=== PATIENT | male | born 1965 | race Two or more races ===

== ENCOUNTER 2016-08-20 12:57 | Inpatient (IN) | payer OTHER ==
--- NOTE | 2016-08-20 14:42 | PDOC ---
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 According to the sister, the patient (who lives with his elderly parents), has been drinking excessively and behaving aggressively towards his mother for the past several weeks. His sister states that he has been "overdosing" on his insulin, has had insomnia, and has been exhibiting bizarre behavior. He has made suicidal statements lately (although patient denies this currently). The patient acknowledges that he has been drinking large amounts of alcohol (beer and liquor), but is unable to quantify. He denies headache, dizziness, chest pain, shortness of breath, or any other physical symptoms. He agrees that he needs to go to inpatient detox/rehab. V/s on arrival are notable for P 97. PCP is Dr. Perez. REVIEW OF SYSTEMS: GENERAL/CONSTITUTIONAL: No fever or chills. No weakness. No weight change. HEAD, EYES, EARS, NOSE AND THROAT: No change in vision. No ear pain or discharge. No sore throat. CARDIOVASCULAR: No chest pain or palpitations. RESPIRATORY: No cough, wheezing, or shortness of breath. GASTROINTESTINAL: No nausea, vomiting, diarrhea or constipation. GENITOURINARY: No dysuria, frequency, or change in urination. MUSCULOSKELETAL: No joint or muscle swelling or pain. No neck or back pain. SKIN: No rash or easy bruising. NEUROLOGIC: No headache, vertigo, loss of consciousness, or loss of sensation. PSYCHIATRIC: See HPI. ENDOCRINE: No increased thirst. No abnormal weight change. HEMATOLOGIC/LYMPHATIC: No anemia, easy bleeding, or history of blood clots. ALLERGIC/IMMUNOLOGIC: No hives or skin allergy. No latex allergy. PHYSICAL EXAM: GENERAL: The patient is awake, alert, and fully oriented, in no acute distress. ENT: Pupils equal, round and reactive to light, extraocular movements intact, sclera anicteric, conjunctiva clear. Neck supple. LUNGS: Clear to auscultation bilaterally. Normal excursion. No respiratory distress or use of accessory muscles. CV: RRR, S1/S2, no MRG. Cap refill < 2 sec. ABDOMEN: Soft, non-distended, non-tender. EXTREMITIES: Normal range of motion, no edema. NEUROLOGICAL: Dysarthric (baseline), mild left-sided weakness (baseline). MMSE: Orientation - 6 Registration - 2 Attention and calculation - 0 Recall - 2 Language and Praxis - 5 = 15 PSYCH: Depressed affect. SKIN: Warm, dry, normal turgor, no rashes or lesions noted. Past History - Past Medical History Allergies/Adverse Reactions: Allergies Allergy/AdvReac Type Severity Reaction Status Date / Time No Known Allergies Allergy Verified 08/20/16 13:00 Home Medications: Ambulatory Orders Aspirin/Dipyridamole [Aspirin-Dipyridam ER 25-200 mg] 1 each PO DAILY 08/20/16 Atorvastatin Ca [Lipitor] 40 mg PO HS 08/20/16 Insulin Aspart [Novolog] 6 unit SQ BID 08/20/16 Insulin Degludec [Tresiba Flextouch U-100] 9 unit SQ HS 08/20/16 Metoprolol Succinate [Toprol Xl] 100 mg PO DAILY 08/20/16 Omeprazole 20 mg PO DAILY 08/20/16 Valsartan 320 mg PO DAILY 08/20/16 CVA: Yes (X2 LT SIDE WEAKNESS) HTN: Yes Hypercholesterolemia: Yes - Psycho/Social/Smoking Cessation Hx Anxiety: No Suicidal Ideation: No Smoking History: Never smoked Have you smoked in the past 12 months: No Hx Alcohol Use: Yes (ALCOHOL) Drug/Substance Use Hx: No Substance Use Type: Alcohol *Physical Exam - Vital Signs Last Vital Signs Temp Pulse Resp BP Pulse Ox 98.0 F 97 H 18 134/103 100 08/20/16 13:01 08/20/16 13:01 08/20/16 13:01 08/20/16 13:01 08/20/16 13:01 ED Treatment Course - LABORATORY CBC & Chemistry Diagram: 08/20/16 16:00 08/20/16 16:00 - RADIOLOGY Radiology Studies Ordered: Category Date Time Status HEAD CT WITHOUT CONTRAST [CT] Stat CT Scan 08/20/16 14:38 Ordered Medical Decision Making - Medical Decision Making 08/20/16 15:03 A/P: 51 year old male with history of multiple CVAs presenting with bizarre/ aggressive behavior, increased EtOH intake. Requesting alcohol detox. 1. Basic labs, TSH, ammonia to rule out toxic metabolic encephalopathy 2. Head CT 3. Serum EtOH, urine drug screen 4. Re-evaluate 08/20/16 16:24 CTH reviewed: moderate chronic microvascular ischemic changes with bilateral periventricular and left centrum semiovale likely lacunar infarcts. Correlation with MRI is recommended to rule out demyelinating plaques considering the patient's age. I am concerned for dymelinating process vs dementia (?multi-infarct) rather than substance abuse alone as cause of the patient's abnormal behavior. Will request admission for further evaluation. 08/20/16 17:14 Blood glucose 45. Juice and D5NS given. *DC/Admit/Observation/Transfer Diagnosis at time of Disposition: Change in behavior, Altered mental status, Hypoglycemia, Alcohol abuse - Discharge Dispostion Admit: Yes - Referrals Referrals: Porsche Perez [Primary Care Provider] -
[2016-08-20 16:39] LABS: URINE APPEARANCE CLEAR; URINE BILIRUBIN NEGATIVE (NEGATIVE); URINE BLOOD NEGATIVE (NEGATIVE); URINE COLOR LTYELLOW; URINE GLUCOSE (UA) 1+ (NEGATIVE); URINE KETONE NEGATIVE (NEGATIVE); URINE LEUK ESTERASE NEGATIVE (NEGATIVE); URINE NITRITE NEGATIVE (NEGATIVE); URINE PROTEIN NEGATIVE (NEGATIVE); URINE UROBILINOGEN NEGATIVE E.U./dl (0.2-1.0)
[2016-08-20 16:43] LABS: ALK PHOS 115 U/L (45-117); BILIRUBIN,TOTAL 0.5 mg/dL (0.2-1.0); CALCIUM 9.1 mg/dL (8.5-10.1); CO2 27 mmol/L (21-32); COCKROFT - GAULT 81.21; CREATININE 1.2 mg/dL (0.7-1.3); SGPT/ALT 39 U/L (12-78); TOT PROT 7.5 g/dl (6.4-8.2)
[2016-08-20 16:56] LABS: BASOPHIL 0.3 % (0-2.0); EOSINOPHIL 0.6 % (0-4.5); MCH 31.2 pg (25.7-33.7); MCHC 32.7 g/dl (32.0-35.9); MEAN CELL VOLUME 95.2 fl (80-96); MEAN PLT VOLUME 9.7 fl (7.5-11.1); PLATELET COUNT 226 K/MM3 (134-434); RDW 13.6 % (11.9-15.9); WHITE BLOOD COUNT 10.5 K/mm3 (4.0-10.0)
[2016-08-20 17:06] LABS: ANION GAP 12 (8-16)
[2016-08-20 17:12] LABS: SGOT/AST 39 U/L (15-37)
[2016-08-20 17:13] LABS: GLUCOSE,RANDOM 45 mg/dL (74-106)
[2016-08-20 17:46] LABS: THYROID STIMULATING HORMONE 0.79 uIU/ml (0.358-3.74)
[2016-08-20] MEDS: DEXTROSE 5%-NORMAL SALINE 1,000 ML IV SCH (18:00)
[2016-08-20 18:03] LABS: URINE MARIJUANA THC NEGATIVE ng/ml (CUTOFF=50)
[2016-08-20 20:42] LABS: BASOPHIL 0.3 % (0-2.0); EOSINOPHIL 2.3 % (0-4.5); MCH 31.4 pg (25.7-33.7); MCHC 32.9 g/dl (32.0-35.9); MEAN CELL VOLUME 95.3 fl (80-96); MEAN PLT VOLUME 9.8 fl (7.5-11.1); NEUTROPHILS 77.8 % (42.8-82.8); PLATELET COUNT 207 K/MM3 (134-434); WHITE BLOOD COUNT 8.9 K/mm3 (4.0-10.0)
--- NOTE | 2016-08-20 21:27 | HP ---
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 According to the sister, the patient (who lives with his elderly parents), has been drinking excessively and behaving aggressively towards his mother for the past several weeks. His sister states that he has been "overdosing" on his insulin, has had insomnia, and has been exhibiting bizarre behavior. He has made suicidal statements lately (although patient denies this currently). The patient acknowledges that he has been drinking large amounts of alcohol (beer and liquor ), but is unable to quantify. He denies headache, dizziness, chest pain, shortness of breath, or any other physical symptoms. He agrees that he needs to go to inpatient detox/rehab. PCP is Dr. Perez. history taken from er records...poor historian - Past Medical History Cardiovascular: Yes: HTN, Hyperlipdemia Endocrine: Yes: Diabetes Mellitus - Smoking History Smoking history: Never smoked Have you smoked in the past 12 months: No - Alcohol/Substance Use Hx Alcohol Use: Yes (ALCOHOL) Home Medications - Allergies Allergies/Adverse Reactions: Allergies Allergy/AdvReac Type Severity Reaction Status Date / Time No Known Allergies Allergy Verified 08/20/16 13:00 - Home Medications Home Medications: Ambulatory Orders Aspirin/Dipyridamole [Aspirin-Dipyridam ER 25-200 mg] 1 each PO DAILY 08/20/16 Atorvastatin Ca [Lipitor] 40 mg PO HS 08/20/16 Insulin Aspart [Novolog] 6 unit SQ BID 08/20/16 Insulin Degludec [Tresiba Flextouch U-100] 9 unit SQ HS 08/20/16 Metoprolol Succinate [Toprol Xl] 100 mg PO DAILY 08/20/16 Omeprazole 20 mg PO DAILY 08/20/16 Valsartan 320 mg PO DAILY 08/20/16 Physical Examination Vital Signs: Vital Signs Temperature 98.0 F 08/20/16 13:01 Pulse Rate 80 08/20/16 21:15 Respiratory Rate 18 08/20/16 21:15 Blood Pressure 158/100 08/20/16 21:15 O2 Sat by Pulse Oximetry (%) 96 08/20/16 21:15 Constitutional: Yes: No Distress HENT: Yes: Atraumatic Neck: Yes: Supple Cardiovascular: Yes: Regular Rate and Rhythm Respiratory: Yes: CTA Bilaterally Gastrointestinal: Yes: Normal Bowel Sounds Extremities: Yes: WNL Neurological: Yes: Alert, Oriented Labs: CBC, BMP 08/20/16 20:36 Imaging - Results X-ray: Report Reviewed Cat Scan: Report Reviewed Problem List - Problems (1) Alcohol abuse Assessment/Plan: will monitor librium protocol detox consult also get neuro involved Code(s): F10.10 - ALCOHOL ABUSE, UNCOMPLICATED (2) Altered mental status Assessment/Plan: bettr now could be due to etoh and porsche min deficiencies Code(s): R41.82 - ALTERED MENTAL STATUS, UNSPECIFIED (3) Diabetes Code(s): E11.9 - TYPE 2 DIABETES MELLITUS WITHOUT COMPLICATIONS Assessment/Plan Laboratory Tests 08/20/16 08/20/16 08/20/16 14:39 16:00 16:00 WBC 10.5 H RBC 4.24 Hgb 13.2 Hct 40.4 MCV 95.2 MCHC 32.7 RDW 13.6 Plt Count 226 MPV 9.7 Neutrophils % 81.0 Lymphocytes % 9.1 Monocytes % 9.0 Eosinophils % 0.6 Basophils % 0.3 Sodium 143 Potassium 4.9 Chloride 104 Carbon Dioxide 27 Anion Gap 12 BUN 12 Creatinine 1.2 Creat Clearance w eGFR > 60 POC Glucometer Random Glucose 45 L* Calcium 9.1 Total Bilirubin 0.5 AST 39 H ALT 39 Alkaline Phosphatase 115 Total Protein 7.5 Albumin 4.0 TSH 0.79 Urine Color Urine Appearance Urine pH Urine Protein Urine Glucose (UA) Urine Ketones Urine Blood Urine Nitrite Urine Bilirubin Urine Urobilinogen Ur Leukocyte Esterase Opiates Screen Negative Methadone Screen Negative Barbiturate Screen Negative Phencyclidine Screen Negative Ur Amphetamines Screen Negative MDMA (Ecstasy) Screen Negative Benzodiazepines Screen Negative Cocaine Screen Negative U Marijuana (THC) Screen Negative 08/20/16 08/20/16 08/20/16 17:25 17:33 20:36 WBC 8.9 RBC 4.06 Hgb 12.7 Hct 38.6 MCV 95.3 MCHC 32.9 RDW 14.0 Plt Count 207 MPV 9.8 Neutrophils % 77.8 Lymphocytes % 9.8 Monocytes % 9.8 Eosinophils % 2.3 D Basophils % 0.3 Sodium Potassium Chloride Carbon Dioxide Anion Gap BUN Creatinine Creat Clearance w eGFR POC Glucometer [id number] Random Glucose Calcium Total Bilirubin AST ALT Alkaline Phosphatase Total Protein Albumin TSH Urine Color Ltyellow Urine Appearance Clear Urine pH 7.0 Urine Protein Negative Urine Glucose (UA) 1+ H Urine Ketones Negative Urine Blood Negative Urine Nitrite Negative Urine Bilirubin Negative Urine Urobilinogen Negative Ur Leukocyte Esterase Negative Opiates Screen Methadone Screen Barbiturate Screen Phencyclidine Screen Ur Amphetamines Screen MDMA (Ecstasy) Screen Benzodiazepines Screen Cocaine Screen U Marijuana (THC) Screen Active Medications Generic Name Dose Route Start Last Admin Trade Name Freq PRN Reason Stop Dose Admin Dextrose/Sodium Chloride 1,000 mls @ 75 mls/hr 08/20/16 17:30 08/20/16 18:00 D5-Ns - IV 75 mls/hr ASDIR FLY Administration Active Medications Generic Name Dose Route Start Last Admin Trade Name Freq PRN Reason Stop Dose Admin Atorvastatin Calcium 40 mg 08/20/16 22:00 08/21/16 00:45 Lipitor - PO Not Given HS FLY Chlordiazepoxide HCl 25 mg 08/21/16 16:24 Librium - PO Q4H PRN WITHDRAWAL(CONT SUBST) Dipyridamole/Aspirin 1 combo 08/21/16 10:00 08/21/16 10:02 Aggrenox - PO 1 combo DAILY FLY Administration Insulin Aspart 1 vial 08/20/16 22:00 08/21/16 16:35 Novolog Vial Sliding Scale - SQ 2 unit ACHS FLY Administration Protocol Metoprolol Succinate 100 mg 08/21/16 10:00 08/21/16 10:03 Toprol Xl - PO 100 mg DAILY FLY Administration Pantoprazole Sodium 20 mg 08/21/16 10:00 08/21/16 10:03 Protonix - PO 20 mg DAILY FLY Administration Thiamine HCl 250 mg 08/21/16 09:45 08/21/16 16:28 Vitamin B1 Injection - IVPB 08/24/16 09:44 250 mg TID FLY Administration Valsartan 320 mg 08/21/16 10:00 08/21/16 10:03 Diovan - PO 320 mg DAILY FLY Administration
[2016-08-20] MEDS: INSULIN SLIDING SCALE (NOVOLOG) 1 VIAL SQ SCH (22:14)
[2016-08-21] MEDS: ATORVASTATIN CA 40 MG TABLET (FP) PO SCH ×2 (00:45→21:34)
[2016-08-21] MEDS: DEXTROSE 5%-NORMAL SALINE 1,000 ML IV SCH ×2 (01:00→16:31)
[2016-08-21 02:06] VITALS: BMI 23.8
[2016-08-21] MEDS: INSULIN SLIDING SCALE (NOVOLOG) 1 VIAL SQ SCH ×5 (02:10→21:37)
[2016-08-21] MEDS: ASPIRIN/DIPYRIDAMOLE 25 MG/200 MG CAPSULE (FP) PO SCH (10:02)
[2016-08-21] MEDS: METOPROLOL SUCCINATE 100 MG TAB.SR.24H (FP) PO SCH (10:03)
[2016-08-21] MEDS: VALSARTAN 160 MG TABLET (UD) PO SCH (10:03)
[2016-08-21] MEDS: chlordiazePOXIDE HCL 25 MG CAPSULE PO SCH (10:03)
[2016-08-21] MEDS: PANTOPRAZOLE 20 MG TABLET (FP) PO SCH (10:03)
--- NOTE | 2016-08-21 11:42 | EKG ---
Test Reason : Blood Pressure : / mmHG Vent. Rate : 082 BPM Atrial Rate : 082 BPM P-R Int : 162 ms QRS Dur : 106 ms QT Int : 390 ms P-R-T Axes : 047 067 063 degrees QTc Int : 455 ms NORMAL SINUS RHYTHM NORMAL ECG NO PREVIOUS ECGS AVAILABLE Confirmed by MARGE VELASCO, SAEID ([id number]) on 08/21/2016 11:41:53 AM Referred By: Confirmed By:SAEID BIRD MD
[2016-08-21] MEDS: THIAMINE HCL 200 MG/2 ML VIAL IVPB SCH ×3 (11:45→21:39)
[2016-08-21] MEDS ORDERED: INSULIN (NOVOLOG) ASPART 100 UNITS/ML 10ML VIAL ONE (11:51)
[2016-08-21] MEDS ORDERED: chlordiazePOXIDE HCL 25 MG CAPSULE PO SCH (16:00)
--- NOTE | 2016-08-21 16:23 | CONSULT ---
Consult Detox [facility] Reason for Current Admission/Consult: R/O alcohol related AMS Referred by:: Berenice Isaac NP - History History of Present Illness: 51 y/o man brought by family because of AMS and excessive drinking according to sister.Pt. denies excessive drinking but does consume beer 48 oz 3x/week. - Alcohol/Substance Use Hx Alcohol Use: Yes (ALCOHOL) - Current Drug/Alcohol Use Alcohol Route: Oral Frequency: 3-6 times per week Amount used: Beer 48oz 3x/week Age of first use: 20 Date of Last Use: 08/19/16 - Past Medical History Cardio/Vascular: Yes: HTN, Hyperlipdemia Endocrine: Yes: Diabetes Mellitus CIWA Score - CIWA Score Nausea/Vomitin-No Nausea/No Vomiting Muscle Tremors: None Anxiety: 2 Agitation: 1-Slight > Activity Paroxysmal Sweats: 1-Minimal Palms Moist Orientation: 0-Oriented Tacttile Disturbances: 1-Very Mild Itch/Numbness Auditory Disturbances: 0-None Visual Disturbances: 0-None Headache: 0-None Present CIWA-Ar Total Score: 5 Assessment Plan - Diagnosis (1) Alcohol dependence Status: Acute Qualifiers: Substance use status: uncomplicated Qualified Code(s): F10.20 - Alcohol dependence, uncomplicated - Plan Plan: No overt withdrawal sx. at this time, no detox needed,we'll order prn librium.
--- NOTE | 2016-08-21 18:47 | CONSULT ---
Consult - text type - Consultation Consultation Note: NEUROLOGY CONSULTATION is greatly appreciated: This 51 yo RH single man lives with his elderly parents. Sister at bedside. Long h/o HTN, DM, Chol and ETOH. Maintained on Insulins, valsartan, metoprolol, atorvastatin, pantoprazole. Said to have had a stroke in 2012 but sister notes patient has been worsening progressively including gait, cognition and behavior. Now intermittently violent. Now admitted with confusion. Blood ETOH level < 5.o. Ammonia= [address] of head: Diffuse, severe, periventricular and subcortical microvascular changes. GWENDOLYN: No head trauma. No bruits. Cor: Reg. NEURO: Mild OMS. Severe dysarthric speech CN: Full concepcion, Full EOM's without nystagmus. Decreased tongue JACKIE' s and gag Motor: Spastic Left hemiparesis. Decreased JACKIE's L>R. + Cogwheel rigidity. Brisk reflexes. B/L Babinski's Coord: Mod L>R FTN dystaxia Sensory: Normal Gait: Stiff, unsteady, B/L circumduction. IMP: B/L cerebral dysfunction. L>R. Extrapyramidal features of Parkinsonism Asymmetry is c/w multi-infarct state but cannot exclude Demyelinating etiology Possible ETOH withdrawal. SUGGEST: Continue IV high-dose thiamine x 72 hrs. Transfer in-patient detox/rehab if possible. MRI of brain (C-) Check B12, Homocysteine, TSH T4, RPR. Neuro f/u as out patient for possible Rx of PD. Continue aggrenox for now. Thank you very much, Marshall Tse MD
--- NOTE | 2016-08-21 19:42 | PN ---
Progress Note, Physician - Current Medication List Current Medications: Active Medications Atorvastatin Calcium (Lipitor -) 40 mg PO HS [facility] Last Admin: 08/21/16 00:45 Dose: Not Given Chlordiazepoxide HCl (Librium -) 25 mg PO Q4H PRN PRN Reason: WITHDRAWAL(CONT SUBST) Dipyridamole/Aspirin (Aggrenox -) 1 combo PO DAILY [facility] Last Admin: 08/21/16 10:02 Dose: 1 combo Insulin Aspart (Novolog Vial Sliding Scale -) 1 vial SQ ACHS [facility] PRN Reason: Protocol Last Admin: 08/21/16 16:35 Dose: 2 unit Metoprolol Succinate (Toprol Xl -) 100 mg PO DAILY [facility] Last Admin: 08/21/16 10:03 Dose: 100 mg Pantoprazole Sodium (Protonix -) 20 mg PO DAILY [facility] Last Admin: 08/21/16 10:03 Dose: 20 mg Thiamine HCl (Vitamin B1 Injection -) 250 mg IVPB TID [facility] Stop: 08/24/16 09:44 Last Admin: 08/21/16 16:28 Dose: 250 mg Valsartan (Diovan -) 320 mg PO DAILY [facility] Last Admin: 08/21/16 10:03 Dose: 320 mg - Objective Vital Signs: Vital Signs Temperature 98.6 F 08/21/16 14:30 Pulse Rate 77 08/21/16 14:30 Respiratory Rate 18 08/21/16 14:30 Blood Pressure 134/95 08/21/16 14:30 O2 Sat by Pulse Oximetry (%) 96 08/21/16 09:00 Constitutional: Yes: Anxious HENT: Yes: Atraumatic Neck: Yes: Supple Cardiovascular: Yes: Regular Rate and Rhythm Respiratory: Yes: CTA Bilaterally Gastrointestinal: Yes: Normal Bowel Sounds Extremities: Yes: WNL Neurological: Yes: Alert, Oriented Labs: CBC, BMP 08/20/16 20:36 Problem List - Problems (1) Alcohol abuse Assessment/Plan: will monitor librium prn detox consult..reviewed neuro consult reviewed Code(s): F10.10 - ALCOHOL ABUSE, UNCOMPLICATED (2) Altered mental status Code(s): R41.82 - ALTERED MENTAL STATUS, UNSPECIFIED Assessment/Plan SPOKE WITH SISTER SHE WANTS HIM TO BE IN REHAB TOLD HER TO SPEAK TO DR AVNI ESTRADA AND [employer] APPRENTICE SHE IS REQUESTING PSYCH EVAL...WILL CALL DR BUSTILLO
[2016-08-21] MEDS ORDERED: PT OWN MED DRAWER 7, Y5N ONE (20:03)
[2016-08-21] MEDS: chlordiazePOXIDE HCL 25 MG CAPSULE PO PRN (21:02)
[2016-08-22] MEDS: chlordiazePOXIDE HCL 25 MG CAPSULE PO SCH (00:18)
[2016-08-22] MEDS: chlordiazePOXIDE HCL 25 MG CAPSULE PO PRN ×3 (00:18→21:36)
[2016-08-22] MEDS: THIAMINE HCL 200 MG/2 ML VIAL IVPB SCH ×3 (05:55→21:36)
--- NOTE | 2016-08-22 06:35 | PN ---
Mental Health Exam - Mental Status Exam Alert and Oriented to: Time, Place, Person Cognitive Function: Grossly Intact Patient Appearance: Well Groomed Mood: Apathetic, Withdrawn Affect: Mood Congruent Patient Behavior: Dependent, Passive, Fatigued (but unable to sleep. ), Cooperative Speech Pattern: Unclear, Slurred (aphasic), Garbled, Aphasic Voice Loudness: Mildly Soft/Quiet Thought Process: Intact Thought Disorder: Not Present Hallucinations: Denies Suicidal Ideation: Denies, No Plan Homicidal Ideation: Denies, No Plan Insight/Judgement: Poor (in light of behaviour, AA) Sleep: Poorly (insomnia) Appetite: Fair Muscle strength/Tone: Moderate Hypertonicity (left side hemiparesis. ) Gait/Station: Spastic
--- NOTE | 2016-08-22 06:48 | PN ---
Progress Note, Physician Chief Complaint: this is a 51 yo [place] male, worked as production team manager for 10 years lives with elderly parents, sister request psych consult for mood/ aggressive. - Current Medication List Current Medications: Active Medications Atorvastatin Calcium (Lipitor -) 40 mg PO HS [facility] Last Admin: 08/21/16 21:34 Dose: 40 mg Chlordiazepoxide HCl (Librium -) 25 mg PO Q4H PRN PRN Reason: WITHDRAWAL(CONT SUBST) Last Admin: 08/22/16 00:18 Dose: 25 mg Dipyridamole/Aspirin (Aggrenox -) 1 combo PO DAILY [facility] Last Admin: 08/21/16 10:02 Dose: 1 combo Insulin Aspart (Novolog Vial Sliding Scale -) 1 vial SQ ACHS [facility] PRN Reason: Protocol Last Admin: 08/21/16 21:37 Dose: 8 unit Metoprolol Succinate (Toprol Xl -) 100 mg PO DAILY [facility] Last Admin: 08/21/16 10:03 Dose: 100 mg Pantoprazole Sodium (Protonix -) 20 mg PO DAILY [facility] Last Admin: 08/21/16 10:03 Dose: 20 mg Thiamine HCl (Vitamin B1 Injection -) 250 mg IVPB TID [facility] Stop: 08/24/16 09:44 Last Admin: 08/22/16 05:55 Dose: Not Given Valsartan (Diovan -) 320 mg PO DAILY [facility] Last Admin: 08/21/16 10:03 Dose: 320 mg - Objective Vital Signs: Vital Signs Temperature 98.9 F 08/21/16 18:00 Pulse Rate 75 08/21/16 18:00 Respiratory Rate 18 08/21/16 21:00 Blood Pressure 134/96 08/21/16 18:00 O2 Sat by Pulse Oximetry (%) 96 08/21/16 21:00 Labs: CBC, BMP 08/20/16 20:36 Problem List - Problems (1) Altered mental status Code(s): R41.82 - ALTERED MENTAL STATUS, UNSPECIFIED Assessment/Plan Client has DM, Cholesterol, HTN. client alert orientated by 3, dsyarthric speech , mood is "OK". Affect congruent, fatiqued. Denies delusions, AH, VH, SI or HI at present. Client is met in own bed lying aware watching tv. Spoke with RN ms Swann who gave him libruim 25 mg last pm for sleep/ withrawls. Client has insomnia posible related to AA, 48 0z 3 days a weekend. Plan to go to rehab after discharge. Not psychotic, no alena, no severe depression. May have alteration in mood related to Hemiparesis, loss of function. Currently no suicidal or homicidal. Thanks for consult.
[2016-08-22] MEDS: INSULIN SLIDING SCALE (NOVOLOG) 1 VIAL SQ SCH ×4 (06:59→21:38)
[2016-08-22] MEDS: ASPIRIN/DIPYRIDAMOLE 25 MG/200 MG CAPSULE (FP) PO SCH (10:47)
[2016-08-22] MEDS: METOPROLOL SUCCINATE 100 MG TAB.SR.24H (FP) PO SCH (10:47)
[2016-08-22] MEDS: VALSARTAN 160 MG TABLET (UD) PO SCH (10:47)
[2016-08-22] MEDS: PANTOPRAZOLE 20 MG TABLET (FP) PO SCH (10:47)
[2016-08-22] MEDS ORDERED: INSULIN (NOVOLOG) ASPART 100 UNITS/ML 10ML VIAL ONE ×2 (11:46→16:14)
--- NOTE | 2016-08-22 18:06 | PN ---
Progress Note, Physician - Current Medication List Current Medications: Active Medications Atorvastatin Calcium (Lipitor -) 40 mg PO HS [facility] Last Admin: 08/21/16 21:34 Dose: 40 mg Chlordiazepoxide HCl (Librium -) 25 mg PO Q4H PRN PRN Reason: WITHDRAWAL(CONT SUBST) Last Admin: 08/22/16 11:48 Dose: 25 mg Dipyridamole/Aspirin (Aggrenox -) 1 combo PO DAILY [facility] Last Admin: 08/22/16 10:47 Dose: 1 combo Insulin Aspart (Novolog Vial Sliding Scale -) 1 vial SQ ACHS FLY PRN Reason: Protocol Last Admin: 08/22/16 16:18 Dose: 2 unit Metoprolol Succinate (Toprol Xl -) 100 mg PO DAILY [facility] Last Admin: 08/22/16 10:47 Dose: 100 mg Pantoprazole Sodium (Protonix -) 20 mg PO DAILY [facility] Last Admin: 08/22/16 10:47 Dose: 20 mg Thiamine HCl (Vitamin B1 Injection -) 250 mg IVPB TID [facility] Stop: 08/24/16 09:44 Last Admin: 08/22/16 14:37 Dose: Not Given Valsartan (Diovan -) 320 mg PO DAILY [facility] Last Admin: 08/22/16 10:47 Dose: 320 mg - Objective Vital Signs: Vital Signs Temperature 98 F 08/22/16 10:00 Pulse Rate 76 08/22/16 10:00 Respiratory Rate 18 08/22/16 10:00 Blood Pressure 156/82 08/22/16 10:00 O2 Sat by Pulse Oximetry (%) 95 08/22/16 09:00 Constitutional: Yes: No Distress HENT: Yes: Atraumatic Neck: Yes: Supple Cardiovascular: Yes: Regular Rate and Rhythm Respiratory: Yes: CTA Bilaterally Gastrointestinal: Yes: Normal Bowel Sounds Extremities: Yes: WNL Neurological: Yes: Alert, Oriented Labs: CBC, BMP 08/20/16 20:36 Problem List - Problems (1) Alcohol abuse Assessment/Plan: will monitor librium prn detox consult..reviewed neuro consult reviewed Code(s): F10.10 - ALCOHOL ABUSE, UNCOMPLICATED (2) Altered mental status Assessment/Plan: bettr now could be due to etoh and porsche min deficiencies Code(s): R41.82 - ALTERED MENTAL STATUS, UNSPECIFIED (3) Diabetes Code(s): E11.9 - TYPE 2 DIABETES MELLITUS WITHOUT COMPLICATIONS Assessment/Plan pt wants to go home psych note reviwed pt is not suicidal 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
[2016-08-22] MEDS: ATORVASTATIN CA 40 MG TABLET (FP) PO SCH (21:36)
[2016-08-23] MEDS: chlordiazePOXIDE HCL 25 MG CAPSULE PO PRN ×2 (03:31→06:45)
[2016-08-23] MEDS: THIAMINE HCL 200 MG/2 ML VIAL IVPB SCH ×2 (06:44→13:13)
[2016-08-23] MEDS: INSULIN SLIDING SCALE (NOVOLOG) 1 VIAL SQ SCH ×3 (06:47→16:51)
[2016-08-23] MEDS: VALSARTAN 160 MG TABLET (UD) PO SCH (09:43)
[2016-08-23] MEDS: ASPIRIN/DIPYRIDAMOLE 25 MG/200 MG CAPSULE (FP) PO SCH (09:43)
[2016-08-23] MEDS: PANTOPRAZOLE 20 MG TABLET (FP) PO SCH (09:43)
[2016-08-23] MEDS: METOPROLOL SUCCINATE 100 MG TAB.SR.24H (FP) PO SCH (09:43)
[2016-08-23 10:32] VITALS: TEMP 98
--- NOTE | 2016-08-23 11:39 | DS ---
Physical Examination Vital Signs: Vital Signs Temperature 98.0 F 08/23/16 10:31 Pulse Rate 69 08/23/16 10:31 Respiratory Rate 16 08/23/16 10:31 Blood Pressure 118/63 08/23/16 10:31 O2 Sat by Pulse Oximetry (%) 95 08/22/16 21:00 Labs: CBC, BMP 08/20/16 20:36 Discharge Summary Reason For Visit: ALTERED MENTAL STATUS Current Active Problems Alcohol abuse (Acute) Alcohol dependence (Acute) Altered mental status (Acute) Change in behavior (Acute) Diabetes (Acute) Hypoglycemia (Acute) - Instructions Diet, Activity, Other Instructions: see your pmd 1 week Referrals: Porsche Perez [Primary Care Provider] - - Home Medications Comprehensive Discharge Medication List: Ambulatory Orders Aspirin/Dipyridamole [Aspirin-Dipyridam ER 25-200 mg] 1 each PO DAILY 08/20/16 Atorvastatin Ca [Lipitor] 40 mg PO HS 08/20/16 Insulin Aspart [Novolog Flexpen] 6 unit SQ BID 08/20/16 Insulin Degludec [Tresiba Flextouch U-100] 9 unit SQ HS 08/20/16 Metoprolol Succinate [Toprol Xl] 100 mg PO DAILY 08/20/16 Omeprazole 20 mg PO DAILY 08/20/16 Valsartan 320 mg PO DAILY [facility]/16 [facility]
[2016-08-23 18:56] VITALS: BP 123/88; PULSE 70
== END 2016-08-23 19:16 | disposition home or self-care (01) | DRG 897 ==
LOC: EDSEX 12:57 → JER 12:57 → JERBED 17:25 → J5S 08-21 00:56
PROVIDERS: ADMIT Internal Medicine; ATTEND Internal Medicine
DX: F10.20 Alcohol dependence, uncomplicated (principal); I69.354 Hemiplegia and hemiparesis following cerebral infarction affecting left non-dominant side; R47.01 Aphasia; I10 Essential (primary) hypertension; E78.5 Hyperlipidemia, unspecified; E11.9 Type 2 diabetes mellitus without complications; H54.42 Blindness, left eye, normal vision right eye; R47.1 Dysarthria and anarthria; R41.82 Altered mental status, unspecified; G93.89 Other specified disorders of brain; Z79.4 Long term (current) use of insulin
CPT/HCPCS: 36415; 70450-TC; 71010-TC; 80053; 80307; 81003; 82140; 84443; 85025; 93005; 93010; 99285-25